=== PATIENT | female | born 1985 | race Caucasian/White ===

== ENCOUNTER 2019-11-21 14:00 | Emergency (ER) | payer SELFPAY ==
[~2019-11-21] VITALS: Ht 152.4 cm; Wt 72.1 kg
[2019-11-21 14:11] VITALS: BP 115/75
--- NOTE | 2019-11-21 14:29 | NUR ---
pt walk to bed with steady gait.
--- NOTE | 2019-11-21 14:32 | NUR ---
C/O R LOWER BACK/FLANK PAIN X1 DAY . pt awake , alert, afibrile , ambulatory with steady gait , sce , cbs blf , flat soft nabs nontender abdomen. pmhx kidney stones.
--- NOTE | 2019-11-21 14:53 | NUR ---
DR FISHER AT BEDSIDE EVALUATING PT.
[2019-11-21] MEDS ORDERED: NACL 0.9% 1,000 ML IV SCH (15:03)
[2019-11-21] MEDS ORDERED: KETOROLAC 30 MG/ML VIAL IVP ONE (15:05)
[2019-11-21] MEDS ORDERED: ONDANSETRON 4 MG/2 ML VIAL IVP ONE (15:05)
--- NOTE | 2019-11-21 15:28 | NUR ---
PT TO CT SCAN VIE WHEELCHAIR .
[2019-11-21] MEDS ORDERED: cefTRIAXone 1,000 MG VIAL ONE (15:40)
[2019-11-21 15:58] LABS: BASOPHILS # (AUTO) 0.1 K/uL (0.00-0.22); BASOPHILS % (AUTO) 0.4 % (0.0-2.0); EOSINOPHILS # (AUTO) 0.1 K/uL (0-0.4); EOSINOPHILS % (AUTO) 0.5 % (0.0-4.0); HEMATOCRIT 37.9 % (36-48); HEMOGLOBIN 12.7 g/dL (12.0-16.0); LYMPHOCYTES # (AUTO) 1.5 K/uL (2.5-16.5); LYMPHOCYTES % (AUTO) 11.1 % (20.5-51.1); MEAN CORPUSCULAR HEMOGLOBIN 31 pg (27-31); MEAN CORPUSCULAR HGB CONC 33 g/dL (33-37); MEAN CORPUSCULAR VOLUME 91.5 fL (80-94); MONOCYTES # (AUTO) 0.9 K/uL (0.8-1.0); MONOCYTES % (AUTO) 6.9 % (1.7-9.3); NEUTROPHILS # (AUTO) 10.9 K/uL (1.8-7.7); NEUTROPHILS % (AUTO) 81.1 % (42.2-75.2); PLATELET COUNT (AUTO) 156 K/uL (140-450); RED BLOOD CELL COUNT(AUTO) 4.14 MIL/uL (4.20-5.40); RED CELL DISTRIBUTION WIDTH 13.6 % (11.6-13.7); WHITE BLOOD COUNT (AUTO) 13.4 K/uL (4.8-10.8)
[2019-11-21 16:11] LABS: ALBUMIN 3.3 g/dL (3.4-5.0); ANION GAP 9.7 (8-16); CARBON DIOXIDE 30.1 mmol/L (21-32); CREATININE 1.1 mg/dL (0.6-1.3); POTASSIUM 3.8 mmol/L (3.5-5.1); TOTAL BILIRUBIN 0.2 mg/dL (0.0-1.0)
--- NOTE | 2019-11-21 17:07 | NUR ---
pt comfortable in bed eating sandwich .
[2019-11-21 17:08] VITALS: BP 120/75
[2019-11-21 17:20] LABS: APPEARANCE,URINE CLOUDY (CLEAR); BILIRUBIN,URINE NEGATIVE (NEGATIVE); BLOOD, URINE NEGATIVE (NEGATIVE); COLOR,URINE YELLOW (YELLOW); LEUKOCYTE ESTERASE ,URINE NEGATIVE (NEGATIVE); NITRITE, URINE NEGATIVE (NEGATIVE); PH,URINE 5.5 (5.0-9.0); UGLUCOSE TRACE (NEGATIVE)
--- NOTE | 2019-11-21 17:45 | NUR ---
PT ELOPED AT 1745. CHECKED IN ROOM, RESTROOMS, & LOBBY.
== END 2019-11-21 17:45 | disposition left against medical advice (07) ==
LOC: MED 14:00
DX: N39.0 Urinary tract infection, site not specified (principal); R10.9 Unspecified abdominal pain; Z90.49 Acquired absence of other specified parts of digestive tract
CPT/HCPCS: 36415; 74176; 80053; 81002; 81003; 81025; 83690; 85025; 87040; 96374; 96375; 99284; J0696; J1885; J2405; J7030